=== PATIENT | male | born 1980 | race Asian ===

== ENCOUNTER 2022-04-07 14:33 | Inpatient (IN) ==
[2022-04-07] MEDS ORDERED: Lorazepam PYXIS KEY PRN ×2 (17:13→19:21)
[2022-04-07] MEDS ORDERED: LORazepam 2 mg VIAL 1 ml IV PUSH ONE ×2 (17:13→19:21)
[2022-04-07] MEDS ORDERED: Thiamine 100 MG/ML 2 ml VIAL 100 MG, Folic Acid IV 1 MG, Multiple Vitamin IV ADULT 10 M... IV ONE (17:13)
[2022-04-07 17:42] LABS: ABS Eosinophils 0.1 10^3/ul (0-0.6); ABS Lymphocytes 0.9 10^3/ul (1.0-4.8); ABS Monocytes 1.1 10^3/ul (0-0.8); ABS Neutrophils 5.4 10^3/ul (1.5-7.7); Eosinophil % 1.2 %; Hematocrit 40 % (42-52); Hemoglobin 14.1 g/dL (14.0-18.0); Lymphocyte % 12.4 %; Mean Corpuscular HGB Conc 35 g/dL (31-36); Mean Corpuscular Hemoglobin 35 pg (27-31); Mean Corpuscular Volume 99 fL (80-94); Mean Platelet Volume 7.6 fL (7.4-10.4); Platelet Count 112 10^3/uL (150-450); Red Blood Count 4.03 10^6 /uL (4.18-5.48); Red Cell Distribution Width 14 % (10-15); White Blood Count 7.5 10^3/uL (3.5-10.8)
[2022-04-07 18:25] LABS: ALT 18 U/L (7-52); AST 33 U/L (13-39); Albumin 4.4 g/dL (3.2-5.2); Albumin/Globulin Ratio 1.7 (1-3); Alcohol, S < 13 mg/dL (<13); Alkaline Phosphatase 47 U/L (35-149); Anion Gap 9 mmol/L (2-11); Blood Urea Nitrogen 18 mg/dL (6-24); CO2 Carbon Dioxide 24 mmol/L (22-32); Chloride 104 mmol/L (101-111); Creatinine, Serum 0.87 mg/dL (0.67-1.17); Globulin 2.6 g/dL (2-4); Glucose 108 mg/dL (70-100); Potassium 3.4 mmol/L (3.5-5.0); Sodium 137 mmol/L (135-145); eGFR CKD-EPI 109.8 (>60)
[2022-04-07] MEDS ORDERED: Thiamine 100 MG/ML 2 ml VIAL (200 mg) IM ONE (19:24)
[2022-04-07] MEDS ORDERED: Potassium Chlor 20 meq TAB.ER PO ONE (19:30)
[2022-04-07] MEDS ORDERED: LORazepam 2 mg VIAL 1 ml IV PUSH SCH (20:00)
[2022-04-07] MEDS ORDERED: diazePAM INJ CARPUJECT 5 MG/ML SYRINGE IV ONE (20:12)
[2022-04-07 22:06] LABS: Magnesium 2.1 mg/dL (1.9-2.7)
[2022-04-07] MEDS: Multivitamins/Minerals TAB PO SCH (22:46)
[2022-04-08 06:21] LABS: ABS Eosinophils 0.2 10^3/ul (0-0.6); ABS Lymphocytes 1.3 10^3/ul (1.0-4.8); ABS Monocytes 0.7 10^3/ul (0-0.8); ABS Neutrophils 2.8 10^3/ul (1.5-7.7); Eosinophil % 3.4 %; Hematocrit 38 % (42-52); Hemoglobin 13.4 g/dL (14.0-18.0); Lymphocyte % 25.4 %; Mean Corpuscular HGB Conc 35 g/dL (31-36); Mean Corpuscular Hemoglobin 35 pg (27-31); Mean Corpuscular Volume 101 fL (80-94); Mean Platelet Volume 7.9 fL (7.4-10.4); Platelet Count 106 10^3/uL (150-450); Red Cell Distribution Width 14 % (10-15)
[2022-04-08 06:41] LABS: Anion Gap 9 mmol/L (2-11); Blood Urea Nitrogen 12 mg/dL (6-24); CO2 Carbon Dioxide 22 mmol/L (22-32); Calcium 8.5 mg/dL (8.6-10.3); Chloride 109 mmol/L (101-111); Creatinine, Serum 0.72 mg/dL (0.67-1.17); Glucose 77 mg/dL (70-100); Potassium 3.6 mmol/L (3.5-5.0); Sodium 140 mmol/L (135-145); eGFR CKD-EPI 116.3 (>60)
[2022-04-08 08:01] LABS: Magnesium 2.2 mg/dL (1.9-2.7); Phosphorus 4.2 mg/dL (2.5-5.0)
[2022-04-08] MEDS: Multivitamins/Minerals TAB PO SCH (08:15)
[2022-04-08 08:28] LABS: Folate > 20.00 ng/mL (5.90-24.80)
[2022-04-08 08:29] LABS: Vitamin B12 325 pg/mL (180-914)
[2022-04-08] MEDS ORDERED: Potassium Chlor 20 meq TAB.ER PO ONE (14:00)
[2022-04-08 15:23] LABS: Urine Appearance Cloudy; Urine Bilirubin Negative (Negative); Urine Blood Negative (Negative); Urine Color Amber; Urine Glucose Negative (Negative); Urine Ketones Trace (Negative); Urine Nitrite Negative (Negative); Urine Protein Negative (Negative); Urine Specific Gravity 1.027 (1.002-1.030); Urine Urobilinogen Negative (Negative)
[2022-04-08 15:39] LABS: Urine Benzodiazepine Screen Presumptive Positive (None Detect); Urine Cannabinoids Screen None Detected (None Detect); Urine Opiates Screen None Detected (None Detect)
[2022-04-09 06:47] LABS: Calcium 8.5 mg/dL (8.6-10.3); Creatinine, Serum 0.73 mg/dL (0.67-1.17); Potassium 3.3 mmol/L (3.5-5.0); eGFR CKD-EPI 115.8 (>60)
[2022-04-09 06:59] LABS: ABS Eosinophils 0.2 10^3/ul (0-0.6); ABS Lymphocytes 1.5 10^3/ul (1.0-4.8); ABS Monocytes 0.7 10^3/ul (0-0.8); ABS Neutrophils 1.9 10^3/ul (1.5-7.7); Eosinophil % 4.3 %; Hematocrit 40 % (42-52); Hemoglobin 13.9 g/dL (14.0-18.0); Lymphocyte % 34.5 %; Mean Corpuscular HGB Conc 35 g/dL (31-36); Mean Corpuscular Hemoglobin 36 pg (27-31); Mean Corpuscular Volume 102 fL (80-94); Mean Platelet Volume 8.1 fL (7.4-10.4); Platelet Count 113 10^3/uL (150-450); Red Blood Count 3.92 10^6 /uL (4.18-5.48); Red Cell Distribution Width 14 % (10-15); White Blood Count 4.4 10^3/uL (3.5-10.8)
[2022-04-09] MEDS ORDERED: Potassium Chlor 20 meq TAB.ER PO ONE (07:58)
[2022-04-09] MEDS: Multivitamins/Minerals TAB PO SCH (10:24)
[2022-04-09 11:36] VITALS: BP 114/77
== END 2022-04-09 13:00 | disposition home or self-care (01) | DRG 897 ==
LOC: ED 14:33 → SUATTDRO 19:22 → EDHOLD 19:22 → SSU 04-08 01:30
PROVIDERS: ADMIT Internal Medicine; ATTEND Internal Medicine